=== PATIENT | male | born 1965 | race Caucasian/White ===

== ENCOUNTER 2020-08-14 07:12 | Outpatient (CLI) | payer OTHER, SELFPAY ==
[2020-08-14 07:40] LABS: Basophils Percent Auto 0.4 % (0.2-1.2); Eosinophils Absolute Auto 0.1 K/mm3 (0-0.3); Eosinophils Percent Auto 2.6 % (0-4.4); Hematocrit 46.3 % (42.0-52.0); Hemoglobin 15.4 g/dL (14.0-18.0); Immature Granulocyte Absolute 0.02 K/mm3 (0.00-0.031); Immature Granulocyte Percent A 0.4 % (0-0.5); Lymphocytes Absolute Auto 1.47 K/mm3 (0.9-3.2); Lymphocytes Percent Auto 29.8 % (18.3-44.2); Mean Corpuscular HGB Conc 33.3 g/dl (32-36); Mean Corpuscular Hemoglobin 28.6 pg (26-34); Mean Corpuscular Volume 85.9 fl (80-100); Mean Platelet Volume 8.9 fl (7.4-10.4); Monocytes Absolute Auto 0.4 K/mm3 (0.1-0.6); Monocytes Percent Auto 8.3 % (2.6-8.5); Neutrophils Absolute Auto 2.9 K/mm3 (1.3-6.7); Neutrophils Percent Auto 58.5 % (45.5-73.1); Platelet Count Result 251 k/mm3 (150-375); Red Blood Count 5.39 M/mm3 (4.6-6.20); Red Cell Distribution Width 12.9 % (11.5-14.5); White Blood Count 4.9 K/mm3 (4.5-10.0)
[2020-08-14 07:52] LABS: Alanine Aminotransferase 64 U/L (4-50); Albumin Level 4.1 g/dL (3.5-5.1); Alkaline Phosphatase 125 U/L (38-126); Anion Gap 7 mmol/L (8-16); Aspartate Amino Transferase 42 U/L (17-59); Bilirubin,Total 0.6 mg/dL (0.2-1.3); Blood Urea Nitrogen 16 mg/dL (9-20); Carbon Dioxide 32 mmol/L (22-30); Chloride 102 mmol/L (98-107); Cholesterol 194 mg/dL (0-200); Estimated Glomerular Filt Rate > 60; Glucose 101 mg/dL (75-110); HDL Direct 32 mg/dL; Potassium 3.9 mmol/L (3.4-5.0); Sodium 141 mmol/L (137-145); Triglycerides 123 mg/dL (<150)
[2020-08-14 08:03] LABS: LDL Cholesterol Direct 142 mg/dL
[2020-08-14 11:30] LABS: Prostate Specific Antigen 2.2 ng/mL (< OR = 4.0)
[2020-08-18 20:27] LABS: Testosterone Total 345 ng/dL (250-1100)
== END 2020-08-14 07:13 | disposition home or self-care (01) ==
PROVIDERS: PCP Family Medicine; Visit Provider Family Medicine
DX: Z12.5 Encounter for screening for malignant neoplasm of prostate (principal); R53.83 Other fatigue; Z00.00 Encounter for general adult medical examination without abnormal findings
CPT/HCPCS: 36415; 80053; 80061; 84153; 84403; 84443; 85025; 85027; G0103

== ENCOUNTER 2020-10-29 10:02 | Outpatient (CLI) | payer OTHER, SELFPAY | END 2020-10-29 10:03 | disposition home or self-care (01) | LOC: ANHCOVIDVC 10:02 | PROVIDERS: PCP Family Medicine | DX: Z23 Encounter for immunization (principal) | CPT/HCPCS: 0001A; 91300 ==

== ENCOUNTER 2020-11-19 10:01 | Outpatient (CLI) | payer OTHER, SELFPAY | END 2020-11-19 10:02 | disposition home or self-care (01) | LOC: ANHCOVIDVC 10:01 | PROVIDERS: PCP Family Medicine | DX: Z23 Encounter for immunization (principal) | CPT/HCPCS: 0002A; 91300 ==

== ENCOUNTER 2021-07-09 09:00 | Outpatient (CLI) | payer OTHER, SELFPAY ==
[2021-07-09 09:46] LABS: Hematocrit 44.2 % (42.0-52.0); Hemoglobin 15.3 g/dL (14.0-18.0); Mean Corpuscular HGB Conc 34.6 g/dl (32-36); Mean Corpuscular Hemoglobin 30.1 pg (26-34); Mean Corpuscular Volume 86.8 fl (80-100); Mean Platelet Volume 9.4 fl (7.4-10.4); Platelet Count Result 281 k/mm3 (150-375); Red Blood Count 5.09 M/mm3 (4.6-6.20); Red Cell Distribution Width 12.6 % (11.5-14.5); White Blood Count 6.3 K/mm3 (4.5-10.0)
[2021-07-09 10:05] LABS: Alanine Aminotransferase 62 U/L (4-50); Albumin Level 4.7 g/dL (3.5-5.1); Alkaline Phosphatase 98 U/L (38-126); Anion Gap 8 mmol/L (8-16); Aspartate Amino Transferase 38 U/L (17-59); Bilirubin,Total 0.7 mg/dL (0.2-1.3); Blood Urea Nitrogen 20 mg/dL (9-20); Calcium 9.5 mg/dL (8.4-10.2); Carbon Dioxide 28 mmol/L (22-30); Chloride 99 mmol/L (98-107); Cholesterol 231 mg/dL (0-200); Estimated Glomerular Filt Rate > 60; Glucose 94 mg/dL (65-110); HDL Direct 38 mg/dL; Potassium 4.5 mmol/L (3.4-5.0); Sodium 135 mmol/L (137-145); Triglycerides 101 mg/dL (<150)
[2021-07-09 10:16] LABS: LDL Cholesterol Direct 146 mg/dL
[2021-07-09 10:36] LABS: Hepatitis B Surface Antigen Negative (Negative)
[2021-07-09 10:43] LABS: HAV RESULT Negative (Negative); Hepatitis B Core IgM Result Negative (Negative)
[2021-07-09 10:54] LABS: Hepatitis C Virus Antibody Negative (Negative)
== END 2021-07-09 09:01 | disposition home or self-care (01) ==
LOC: ANHLAB 09:03
PROVIDERS: PCP Family Medicine; Visit Provider Family Medicine
DX: R53.83 Other fatigue (principal); E78.2 Mixed hyperlipidemia; R79.89 Other specified abnormal findings of blood chemistry
CPT/HCPCS: 36415; 80048; 80061; 80074; 80076; 85027

== ENCOUNTER → 2023-09-10 07:55 | Outpatient (CLI) | payer OTHER, SELFPAY ==
--- NOTE | ~2023-09-10 | US_ITS ---
US retroperitoneal comp 09/10/2023 08:14 Procedure: Realtime transabdominal ultrasound of the kidneys and bladder. Indication: Urinary tract infection. Difficulty urinating. Comparison: No prior studies for comparison. Findings: Renal echotexture is normal bilaterally without hydronephrosis, contour deforming mass or r enal calculus. There is a 1.6 cm right renal cyst. The right kidney measures 12.6 cm and left kidney measures 11.9 cm. Bladder within normal limits. Impression: 1: Unremarkable renal ultrasound. No stones, solid masses or hydronephrosis. Reviewed, dictated and finalized at location B. [employer] Impression: 1: Unremarkable renal ultrasound. No stones, solid masses or hydronephrosis.
== END ==
PROVIDERS: PCP Urology; Visit Provider Urology
DX: N39.0 Urinary tract infection, site not specified (principal)
CPT/HCPCS: 76770

== ENCOUNTER 2023-12-30 08:39 | Outpatient (CLI) | payer OTHER, SELFPAY ==
--- NOTE | 2024-01-14 19:45 | P.SLEEP_ITS ---
Sleep Study Date of Study: 12/30/23 Ordering Provider: Carl Reed APRN Interpreting Physician: Annamarie David MD Sleep Study Type: CPAP Titration Height: 1.8 m Weight: 102.058 kg Body Mass Index: 31.4 Neck Circumference (inches): 15.5 [place]: 2 Reason for Sleep Study Obstructive sleep apnea Sleep History This note was opened in error. Please see completed note from [facility] Past Medical History Medical History BPH (benign prostatic hyperplasia) Colonic polyp Elevated liver function tests Family history of colon cancer Family hx of prostate cancer Gastroesophageal reflux disease without esophagitis Hernia Hx of colonic polyp Insomnia Lumbar degenerative disc disease Mixed hyperlipidemia ALICIA (obstructive sleep apnea) Primary osteoarthritis, unspecified site PTSD (post-traumatic stress disorder) Seasonal allergies TMJ (dislocation of temporomandibular joint) Ulnar neuropathy Surgical History Surgical History History of elbow surgery left elbow History of hernia surgery History of joint surgery TMJ History of wisdom tooth extraction Family History Family History Father Hypertension Family history of elevated blood lipids Malignant neoplasm of prostate, Onset Age: 40 Family history of primary malignant neoplasm of liver Family history of hypercholesterolemia Carcinoma of colon, Onset Age: 50 Sibling Carcinoma of colon Mother Family history of Alzheimer's disease Grandparent Family history of lung cancer Other Family history of arthritis Family history of mental disorder Social History Social History Smoking status: Never smoker Second hand tobacco smoke exposure: No Alcohol intake: never Substance use: never Substance use type: does not use Lack of Transportation: No Lack of Food: Never True Current Housing: I Have Housing Concerned About Future Housing: No Difficulty Paying Gas/Electric Bills: No Difficulty Paying for Meds: No Currently Unemployed: No Education: Master's Degree or Higher Difficulty w/ Childcare or Family Care: No Living arrangements: with family Occupation/Education: occupation Gender identity (if verbalized by the patient): Male Spiritual care concerns: No Agree to blood products: Yes Medications Home Medications Medication Instructions Recorded Confirmed Type omeprazole 40 mg capsule,delayed 40 mg PO DAILY #90 caps 11/20/22 12/10/23 Rx release montelukast 10 mg tablet 10 mg PO DAILY #90 tabs 02/18/23 12/10/23 Rx tamsulosin 0.4 mg capsule (Flomax) 0.4 mg PO DAILY #90 caps 07/11/23 12/10/23 Rx gabapentin 300 mg capsule See Rx Instructions PO DAILY #150 11/09/23 12/10/23 Rx caps celecoxib 200 mg capsule (Celebrex) 200 mg PO DAILY #90 caps 11/24/23 12/10/23 Rx zolpidem 10 mg tablet (Ambien) 10 mg PO .HS #30 tabs 12/14/23 Rx
[2024-01-17 14:11] VITALS: BMI 31.4
--- NOTE | 2024-01-17 14:11 | WPDSLEEPSTUD ---
Sleep Study Date of Study: 12/30/23 Ordering Provider: Carl Reed APRN Interpreting Physician: Jesi Horton DO Sleep Study Type: CPAP Titration Height: 1.8 m Weight: 102.058 kg Body Mass Index: 31.4 Neck Circumference (inches): 15.5 [place]: 2 Reason for Sleep Study [place] HST 03/01/23 ? severe sleep apnea, AHI 32.2 (145 obstructive, 84 central). Lowest O2 saturation 73% with 103min (24% study time) spent below 90% saturation. On APAP [id number]. Download shows suboptimal compliance, 61% nights used. Average usage 2.9 hours/night. AHI 0.7. Avg pressure 6.1cmH2O. Sleep History The patient is a 58-year-old male with severe sleep apnea on CPAP that had a sleep study ordered for difficulty tolerating AutoPAP. The sleep intake forms were unavailable. [facility] Past Medical History Medical History BPH (benign prostatic hyperplasia) Colonic polyp Elevated liver function tests Family history of colon cancer Family hx of prostate cancer Gastroesophageal reflux disease without esophagitis Hernia Hx of colonic polyp Insomnia Lumbar degenerative disc disease Mixed hyperlipidemia ALICIA (obstructive sleep apnea) Primary osteoarthritis, unspecified site PTSD (post-traumatic stress disorder) Seasonal allergies TMJ (dislocation of temporomandibular joint) Ulnar neuropathy Surgical History Surgical History History of elbow surgery left elbow History of hernia surgery History of joint surgery TMJ History of wisdom tooth extraction Family History Family History Father Hypertension Family history of elevated blood lipids Malignant neoplasm of prostate, Onset Age: 40 Family history of primary malignant neoplasm of liver Family history of hypercholesterolemia Carcinoma of colon, Onset Age: 50 Sibling Carcinoma of colon Mother Family history of Alzheimer's disease Grandparent Family history of lung cancer Other Family history of arthritis Family history of mental disorder Social History Social History Smoking status: Never smoker Second hand tobacco smoke exposure: No Alcohol intake: never Substance use: never Substance use type: does not use Lack of Transportation: No Lack of Food: Never True Current Housing: I Have Housing Concerned About Future Housing: No Difficulty Paying Gas/Electric Bills: No Difficulty Paying for Meds: No Currently Unemployed: No Education: Master's Degree or Higher Difficulty w/ Childcare or Family Care: No Living arrangements: with family Occupation/Education: occupation Gender identity (if verbalized by the patient): Male Spiritual care concerns: No Agree to blood products: Yes Medications Home Medications Medication Instructions Recorded Confirmed Type omeprazole 40 mg capsule,delayed 40 mg PO DAILY #90 caps 11/20/22 12/10/23 Rx release montelukast 10 mg tablet 10 mg PO DAILY #90 tabs 02/18/23 12/10/23 Rx tamsulosin 0.4 mg capsule (Flomax) 0.4 mg PO DAILY #90 caps 07/11/23 12/10/23 Rx gabapentin 300 mg capsule See Rx Instructions PO DAILY #150 11/09/23 12/10/23 Rx caps celecoxib 200 mg capsule (Celebrex) 200 mg PO DAILY #90 caps 11/24/23 12/10/23 Rx zolpidem 10 mg tablet (Ambien) 10 mg PO .HS #30 tabs 12/14/23 Rx Sleep Procedure A full night polysomnogram using the [employer] multi-channel system recorded the standard physiologic parameters including EEG, EOG, submentalis EMG, anterior tibialis EMG, EKG, body position, nasal and oral airflow using PAP device flow signal.? Respiratory parameters of chest and abdominal movements were recorded with Respiratory Inductance Plethysmography belts. Oxygen saturation was recorded by pulse oximetry. Video monitoring was also performed. Sleep
== END 2023-12-31 05:30 | disposition home or self-care (01) ==
LOC: ANHCSM 08:40
PROVIDERS: PCP Urology; Visit Provider Nurse Practitioner Family
DX: G47.33 Obstructive sleep apnea (adult) (pediatric) (principal)
CPT/HCPCS: 95811